=== PATIENT | female | born 1945 | race Caucasian/White ===

== ENCOUNTER 2025-02-21 13:27 | Inpatient (IN) | payer MEDICARE, OTHER ==
[~2025-02-21] VITALS: Ht 172.7 cm; Wt 102.2 kg
[2025-02-21] MEDS ORDERED: methylPREDNISolone SOD SUCC 125 MG/2 ML VL IV ONE (13:45)
--- NOTE | 2025-02-21 14:17 | DVH ---
CHEST RADIOGRAPH Indication: sob Technique: Single frontal view of the chest was obtained Comparison: None FINDINGS: The cardiac silhouette is enlarged. The lungs demonstrate patchy airspace opacities. The pulmonary va sculature is prominent. There is no pleural effusion.. There is no pneumothorax. Aortic atherosclerot ic disease. Thoracic dextrocurvature. Old appearing posterolateral right rib fractures. Cervical baltazar dware IMPRESSION: 1. Cardiomegaly with pulmonary vascular congestion and bilateral patchy airspace opacities. 2. Old appearing right posterior/ lateral rib fractures. Correlate with point tenderness.
[2025-02-21 14:20] LABS: Basophils # (auto) 0 10 ^3/uL (0-0.2); Basophils % (auto) 0.6 % (0.0-2.0); Eosinophils # (auto) 0.1 10 ^3/uL (0-0.8); Eosinophils % (auto) 1.4 % (0.0-7.0); Hematocrit 46.9 % (36.0-46.0); Hemoglobin 15.5 g/dL (12.2-16.2); Lymphocytes # (auto) 1.1 10 ^3/uL (0.4-5.4); Lymphocytes % (auto) 16.1 % (10.0-50.0); Mean Corpuscular Hemoglobin 30.5 pg (28.0-32.0); Mean Corpuscular Volume 92.3 fL (80.0-100.0); Monocytes # (auto) 0.5 10 ^3/uL (0-1.3); Monocytes % (auto) 7.2 % (0.0-12.0); Neutrophils # (auto) 5.1 10 ^3/uL (1.6-8.6); Neutrophils % (auto) 74.7 % (37.0-80.0); Nucleated Red Blood Cells % 0.1 %; Platelet Count (auto) 179 10^3/uL (140-450); Red Blood Cells 5.08 10^6/uL (4.0-5.20); Red Cell Distribution Width 14.4 % (11.8-14.3); White Blood Cell 6.9 10^3/uL (4.4-10.8)
[2025-02-21] MEDS: methylPREDNISolone SOD SUCC 40 MG/ML VL IV ONE (14:22)
--- NOTE | 2025-02-21 14:45 | ECG ---
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
[2025-02-21 14:58] VITALS: PULSE 89; RESP 12; O2SAT 91
[2025-02-21 15:21] LABS: Chloride 106 mmol/L (98-107); Potassium 4.3 mmol/L (3.5-5.1); Sodium 142 mmol/L (136-145)
[2025-02-21 15:22] LABS: Anion Gap 6 (5-15); Carbon Dioxide 30 mmol/L (20-31)
[2025-02-21 15:23] LABS: Calcium 9.5 mg/dL (8.7-10.4)
[2025-02-21 15:28] LABS: BUN/Creatinine Ratio 16.4 (10.0-20.0); Blood Urea Nitrogen 10 mg/dL (9-23); Glucose 104 mg/dL (74-106)
[2025-02-21] MEDS: hydrALAZINE HCL 20 MG/ML VL IV ONE (16:35)
[2025-02-21] MEDS: ONDANSETRON HCL 4 MG/2 ML VIAL IV ONE (16:35)
[2025-02-21] MEDS: MORPHINE SULFATE 4 MG/ML SYR/VIAL IV ONE (16:36)
[2025-02-21 17:30] LABS: Urine Bacteria MANY /hpf (None Seen); Urine Blood 1+ /uL (Negative); Urine Budding Yeast OCCASIONAL /hpf (None Seen); Urine Clarity Ex.Turbid (Clear); Urine Color Light-Orange (Yellow); Urine Mucus FEW (None Seen); Urine Protein, UAD 1+ (Negative); Urine Specific Gravity 1.018 (1.001-1.035); Urine Squamous Epithelial Cell MOD /hpf (<5); Urine Urobilinogen Normal (Negative); Urine WBC 115 /HPF (0-5); Urine WBC Clumps PRESENT /hpf (None Seen); Urine pH 5.5 (5.0-9.0)
[2025-02-21] MEDS: SODIUM CHLORIDE 0.9% 1,000 ML IV ONE (17:34)
[2025-02-21] MEDS: IOHEXOL 350 MG/ML 100ML IJ ONE (18:22)
--- NOTE | 2025-02-21 18:59 | DVH ---
Procedure: CT CT ANGIO CHEST CONTRAST Reason for study/Clinical History: sob Comparison Study: None Exam Date: 02/21/2025 06:22 PM Radiation Dose Information: CT Dose: CTDI volume is 23.69 mGy. Dose-length product is 881.49 mGy*cm Contrast: Type of contrast: The 350 Contrast inject: 100 Contrast wasted:0 TECHNIQUE: After the uneventful administration of intravenous contrast intravenously, CT imaging was performed through the chest. Coronal and sagittal reformations were performed by the technologist. FINDINGS: Lower Neck: Visualized portions of the thyroid gland are unremarkable. Aorta and Vasculature: Normal caliber of thoracic aorta. Positive pulmonary emboli bilaterally in 2nd and 3rd order branches. Lymph Nodes: No enlarged intrathoracic lymph nodes. Mediastinum: Heart size is normal. There is no pericardial effusion. The esophagus is unremarkable. Lungs: No focal consolidation, pleural effusion or significant pneumothorax. No suspicious pulmonary nodule or mass. Musculoskeletal: No acute osseous abnormality. Upper abdomen: Limited portions of the upper abdomen are unremarkable. IMPRESSION: 1. Positive filling defects in 2nd and 3rd order branches of the pulmonary arteries on the right and left consistent with pulmonary emboli. 2. All CT scans at this medical facility are performed using dose modulation techniques as appropriate to a performed exam including the following: Automated exposure control was utilized; adjustment of t he MA and/or KV according to patient size; and use of iterative reconstruction technique. CRITICAL FINDINGS Critical Result: + PULMONARY EMBOLI Findings discussed with , at 02/21/2025 06:50 PM, and acknowledged receipt and understanding of the f indings. ..
--- NOTE | 2025-02-21 19:15 | ECG ---
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
--- NOTE | 2025-02-21 19:44 | ED.PDOC ---
History of Present Illness HPI Comments This is a 79-year-old female who comes in with chief complaint of chest pain and syncope approximately 1 hour prior to arrival. According to the patient, [facility] came and saw her and the patient has been complaining of some abdominal pain and constipation with some shortness for breath. The patient states that she started experiencing some chest pain with the shortness for breath and diaphoresis so an EKG was done and it was right-sided and shows a possible STEMI. The patient has a history of being paralyzed but was able to give us her medical history. She states that the pain is somewhat pressure-like and nonradiating. Currently she is on oxygen at 2 L for COPD. Chief Complaint: Syncope Time Seen by MD: 13:30 Primary Care Provider: UNKNOWN Reviewed Notes: Nurses Notes, Slot Machine Key Person Notes, Medications, Allergies (No allergies to medications) Allergies: Coded Allergies: NO KNOWN ALLERGIES (Unverified , 02/21/25) Information Source: Patient, Emergency Med Personnel Mode of Arrival: EMS Severity: Moderate Timing: Hours Duration: Since onset Prehospital treatment: 12 Lead EKG, Acid Operator, IVF Associated signs and symptoms Chest pain with syncope as well as abdominal pain and shortness for breath. The patient is also having some diaphoresis and constipation Past Medical History PAST MEDICAL HISTORY: Cancer (Colon cancer), COPD, High Lipids, HTN Past Medical History (Other): History of paralysis Surgical History (Other): Back surgery, neck surgery, colon surgery secondary to colon cancer CAPACITOR REPAIRER History: No Pertinent CAPACITOR REPAIRER History Family History Family History: Unknown Social History Smoker: Non-Smoker Alcohol: Occasionally Drugs: Marijuana Lives In: Home Constitutional: reports: diaphoresis; denies: chills, fatigue, fever, malaise, sweats, weakness, others EENTM: denies: blurred vision, double vision, ear bleeding, ear discharge, ear drainage, ear pain, ear ringing, eye pain, eye redness, hearing loss, mouth pain, mouth swelling, nasal discharge, nose bleeding, nose congestion, nose pain, photophobia, tearing, throat pain, throat swelling, voice changes, others Respiratory: denies: cough, hemoptysis, orthopnea, SOB at rest, shortness of breath, SOB with excertion, stridor, wheezing, others Cardiovascular: reports: chest pain, syncope; denies: dizzy spells, diaphoresis, Dyspnea on exertion, edema, irregular heart beat, left arm pain, lightheadedness, palpitations, PND, others Gastrointestinal: reports: abdominal pain, constipated; denies: abdomen distended, blood streaked bowels, diarrhea, dysphagia, difficulty swallowing, hematemesis, melena, nausea, poor appetite, poor fluid intake, rectal bleeding, rectal pain, vomiting, others Genitourinary: denies: abnormal vagina bleeding, burning, dyspareunia, dysuria, flank pain, frequency, hematuria, incontinence, pain, , vagina discharge, urgency, others Neurological: denies: dizziness, fainting, headache, left sided numbness, left sided weakness, numbness, paresthesia, pre-existing deficit, right sided numbness, right sided weakness, seizure, speech problems, tingling, tremors, weakness, others Musculoskeletal: denies: back pain, gout, joint pain, joint swelling, muscle pain, muscle stiffness, neck pain, others Integumetry: denies: bruises, change in color, change in hair/nails, dryness, laceration, lesions, lumps, rash, wounds, others Allergic/Immunocompromised: denies: Difficulty Healing, Frequent Infections, Hives, Itching, others Hematologic/Lymphatic: denies: anemia, blood clots, easy bleeding, easy bruising, swollen glands, others Endocrine: denies: excessive hunger, excessive sweating, excessive thirst, excessive urination, flushing, intolerance to cold, intolerance to heat, unexplained weight gain, unexplained weight loss, others Psychiatric: denies: anxiety, bipolar disorder, depression, hopeless, panic disorder, schizophrenia, sleepless, suicidal, others Physical Exam General Appearance: Moderate Distress, Obese HEENT: Pale [place]junt[place]ae (L), Pale Conjuntivae (R), Pharynx Normal, TMs Normal Neck: Full Range of Motion, Non-Tender, Normal, Normal Inspection Respiratory: Chest Non-Tender, Lungs Clear, No Accessory Muscle Use, No Respiratory Distress, Normal Breath Sounds Cardiovascular: No Edema, No JVD, No Murmur, No Gallop, Normal Peripheral Pul ses, Regular Rate/Rhythm Breast Exam: Deferred Gastrointestinal: No Organomegaly, Non Tender, No Pulsatile Mass, Normal Bowel Sounds, Soft Genitalia: Deferred Pelvic: Deferred Rectal: Deferred Extremities: Normal capillary refill, Non-tender, Pedal edema Musculoskeletal : Apperance: Normal Neurologic: Alert, Motor Weakness, Normal Affect, Normal Mood, Other (The patient is a paraplegic) Cerebellar Function: Unable to Test Reflexes: Normal Skin: Dry, Pallor, Warm Lymphatic: No Adenopathy Was a procedure done? Was a procedure done?: No EKG EKG : Pulse Rate (adult): 116 [place]: Normal Cardiac Rhythm: ST ST: Nonsp Differential Dx Considerations may include: PE, ACS, CA, generalized weakness X-Ray, Labs, Meds, VS Vital Signs Date Time Temp Pulse Resp B/P (MAP) Pulse Ox O2 Delivery O2 Flow Rate FiO2 02/21/25 18:22 83 17 94/67 02/21/25 18:00 85 14 105/66 (79) 92 02/21/25 16:36 80 19 197/128 02/21/25 16:35 197/128 02/21/25 16:01 88 19 214/143 (166) 90 02/21/25 16:00 89 02/21/25 14:58 89 12 91 Nasal Cannula* 6 44 02/21/25 14:28 86 02/21/25 13:55 94 Nasal Cannula* 6 44 02/21/25 13:53 98.1 83 15 104/70 (81) 94 98.1 02/21/25 13:27 116 02/21/25 13:27 98.4 86 16 82/67 (72) 9 98.4 Lab Test 02/21/25 16:59 02/21/25 15:02 02/21/25 14:50 02/21/25 14:00 Range/Units Troponin I High Sensitivity 1045 *H 870 *H 589 *H </=34 ng/L Urine Color Light-orange Yellow Urine Clarity Ex.turbid Clear Urine pH 5.5 5.0-9.0 Urine Specific [place] 1.018 1.001-1.035 Urine Protein 1+ H Negative Urine Ketones Negative Negative Urine Blood 1+ H Negative /uL Urine Nitrite 2+ H Negative Urine Bilirubin Negative Negative Urine Urobilinogen Normal Negative mg/dL Urine Leukocyte Esterase 3+ Negative /uL Urine RBC 20 0 - 4 /hpf Urine WBC Clumps Present None Seen /hpf Urine Microscopic WBC 115 H 0-5 /HPF Urine Squamous Epithelial Cells Mod <5 /hpf Urine Bacteria Many H None Seen /hpf Urine Mucus Few None Seen Urine Yeast (Budding) Occasional None Seen /hpf Urine Glucose Normal Normal mg/dL White Blood Count 6.9 4.4-10.8 10^3/uL Red Blood Count 5.08 4.0-5.20 10^6/uL Hemoglobin 15.5 12.2-16.2 g/dL Hematocrit 46.9 H 36.0-46.0 % Mean Corpuscular Volume 92.3 80.0-100.0 fL Mean Corpuscular Hemoglobin 30.5 28.0-32.0 pg Mean Corpuscular Hemoglobin Concent 33.0 32.0-36.0 g/dL Red Cell Distribution Width 14.4 H 11.8-14.3 % Platelet Count 179 140-450 10^3/uL Mean Platelet Volume 8.5 6.9-10.8 fL Neutrophils (%) (Auto) 74.7 37.0-80.0 % Lymphocytes (%) (Auto) 16.1 10.0-50.0 % Monocytes (%) (Auto) 7.2 0.0-12.0 % Eosinophils (%) (Auto) 1.4 0.0-7.0 % Basophils (%) (Auto) 0.6 0.0-2.0 % Neutrophils # (Auto) 5.1 1.6-8.6 10 ^3/uL Lymphocytes # (Auto) 1.1 0.4-5.4 10 ^3/uL Monocytes # (Auto) 0.5 0-1.3 10 ^3/uL Eosinophils # (Auto) 0.1 0-0.8 10 ^3/uL Basophils # (Auto) 0 0-0.2 10 ^3/uL Nucleated Red Blood Cells 0.1 % D-Dimer, Quantitative 15.25 H 0.0-0.49 mg/L FEU Sodium Level 142 136-145 mmol/L Potassium Level 4.3 3.5-5.1 mmol/L Chloride Level 106 98-107 mmol/L Carbon Dioxide Level 30 20-31 mmol/L Anion Gap 6 5-15 Blood Urea Nitrogen 10 9-23 mg/dL Creatinine 0.61 0.550-1.02 mg/dL Glomerular Filtration Rate Calc 92 >90 mL/min BUN/Creatinine Ratio 16.4 10.0-20.0 Serum Glucose 104 74-106 mg/dL Calcium Level 9.5 8.7-10.4 mg/dL B-Type Natriuretic Peptide 59.74 0-100 pg/mL Current Medications Medications (Trade) Dose Ordered Sig/Shayna Route Start Time Stop Time Status Last Admin Methylprednisolone Sodium Succinate (Solu Medrol) 120 mg ONCE ONCE IV 02/21/25 14:30 02/21/25 14:31 DC 02/21/25 14:22 Hydralazine HCl (Apresoline Injection) 15 mg ONCE ONCE IV 02/21/25 16:30 02/21/25 16:31 DC 02/21/25 16:35 Morphine Sulfate 4 mg ONCE ONCE IV 02/21/25 16:30 02/21/25 16:31 DC 02/21/25 16:36 Ondansetron HCl (Zofran) 4 mg ONCE ONCE IV 02/21/25 16:30 02/21/25 16:31 DC 02/21/25 16:35 Sodium Chloride 1,000 ml @ 1,000 mls/hr Q1H ONCE IV 02/21/25 17:30 02/21/25 18:29 DC 02/21/25 17:34 IV Hep-Lock was established The patient was given Solu-Medrol 120 mg IV push The patient was also given hydralazine 15 mg for the elevated blood pressure The patient was given morphine for the pain and Zofran for the nausea The patient became somewhat hypotensive so the patient was given normal saline as a bolus The D-dimer is elevated at 15.25 The patient's troponin level has trended upwards from 589 two 870 and then 1045 The patient's CBC and chemistry panel are within normal limits A chest x-ray shows: IMPRESSION: 1. Cardiomegaly with pulmonary vascular congestion and bilateral patchy airspace opacities. 2. Old appearing right posterior/ lateral rib fractures. Correlate with point tenderness. We then did a CAT scan of the chest to rule out PE secondary to the elevated D- dimer and the trending troponin levels The CAT scan shows: Critical pulmonary embolus We contacted who is here to take the patient to confectionery laboratory manager for a thrombectomy We have discussed the findings with the patient and she is in agreement with the management. The patient was given Lovenox initially prior to the thrombectomy The patient will be admitted to the ICU following this. Images Reviewed?: Images reviewed and evaluated by me Time of 1ST Reevaluation: 20:04 Reevaluation 1ST: Unchanged Time of 2ND Reevaluation: 20:09 Reevaluation 2ND: Unchanged Patient Education/Counseling: Diagnosis, Treatment, Prognosis Family Education/Counseling: No Family Present Departure 1 Departure Time of Disposition: 20:09 Impression: Primary Impression: Pulmonary embolus Qualified Codes: I26.09 - Other pulmonary embolism with acute cor pulmonale Additional Impression: Acute chest pain Disposition: ADMITTED INPATIENT Condition: Guarded Critical Care Note Critical Care Time?: Yes (1 hr-critical care time only) Stability Stability form required: Yes Unstable for transfer: ICU, CCU, PCU, LUISA (Intensive VS monitoring), Low BP (low high or fluctuating BP), May require CPR (possible rapid decline), ED Physician Assesment (Clinical assesment) Heart Score Heart Score: Heart Score Response (Comments) Value History Highly Suspicious [address]-Deviation 2 Age >65 2 Risk Factors >3 or Hx ASHD 2 Troponin >3 x's Normal limit 2 Total 10 AGUILAR STEPHENS MD February 21, 2025 19:44
[2025-02-21 19:45] VITALS: PULSE 84; RESP 12; O2SAT 91
[2025-02-21] MEDS: ENOXAPARIN SOD 100 MG/1 ML SYRINGE SC ONE (20:06)
[2025-02-21] MEDS: fentaNYL CITRATE 100 MCG/2 ML VL ONE (20:29)
[2025-02-21] MEDS: MIDAZOLAM HCL 2MG/2ML 2ml VIAL (1mg/ml) ONE (20:29)
[2025-02-21] MEDS ORDERED: ONDANSETRON HCL 4 MG/2 ML VIAL IV PRN (20:30)
[2025-02-21] MEDS ORDERED: MORPHINE SULFATE INJ 2 MG/ml SYRG IV PRN (20:30)
[2025-02-21] MEDS: LIDOCAINE 2%HCL (LOCAL ANESTH.) INJ 20ML MDV ONE (20:30)
[2025-02-21] MEDS ORDERED: NITROGLYCERIN 0.4 MG SL TAB SL PRN (20:30)
--- NOTE | 2025-02-21 20:42 | DVHCONRES ---
Date Seen: February 21, 2025 Resident Creating Document: ESTELA ALEJANDRE Jr., MD Referring Physician er Reason for Consultation Bilateral pulmonary embolism History of Present Illness This is a 79-year-old female who comes in with chief complaint of chest pain and syncope approximately 1 hour prior to arrival. According to the patient, [facility] came and saw her and the patient has been complaining of some abdominal pain and constipation with some shortness for breath. The patient states that she started experiencing some chest pain with the shortness for breath and diaphoresis so an EKG was done and it was right-sided and shows a possible STEMI. The patient has a history of being paralyzed but was able to give us her medical history. She states that the pain is somewhat pressure-like and nonradiating. Currently she is on oxygen at 2 L for COPD. Past Medical History Hypertension, colon cancer, hyperlipidemia, COPD Past Surgical History Colon resection Social History Nonsmoker nondrinker Allergies: Coded Allergies: NO KNOWN ALLERGIES (Unverified , 02/21/25) Current Medications Current Medications Medications (Trade) Dose Ordered Sig/Shayna Route PRN Reason Start Time Stop Time Status Last Admin Sodium Chloride (Saline Lock Ns) 10 ml Q8HR IV 02/21/25 22:00 Ondansetron HCl (Zofran) 4 mg Q4HP PRN IV NAUSEA / VOMITING 02/21/25 20:30 Docusate Sodium (Colace Capsule) 100 mg BIDPRN PRN PO FOR CONSTIPATION 02/21/25 20:30 Acetaminophen (Tylenol Tablet) 650 mg Q6HP PRN PO PAIN SCALE 1-3 OR TEMP>100.4 02/21/25 20:30 Morphine Sulfate 2 mg Q4HPRN PRN IV SEVERE PAIN (7-10 PAIN SCALE) 02/21/25 20:30 Nitroglycerin (Ntrostat Sublingual) 0.4 mg Q5MINP PRN SL FOR CHEST PAIN 02/21/25 20:30 Morphine Sulfate 2 mg Q30M PRN IV FOR CHEST PAIN 02/21/25 20:30 Review of Systems Systems were reviewed please see HPI Vital Signs Vital Signs Date Time Temp Pulse Resp B/P (MAP) Pulse Ox O2 Delivery O2 Flow Rate FiO2 02/21/25 20:11 116 02/21/25 19:45 97.8 12 103/60 (74) 91 97.8 02/21/25 14:58 Nasal Cannula* 6 44 Physical Exam Head eyes ears nose and throat exam are nonicteric conjunctiva was pink Echo supple no JVD no lymphadenopathy no carotid bruits lungs decreased breath sounds bases she is on currently on oxygen with labored breathing. Saturation 85-86%. Or was mildly tachycardic abdomen is soft nontender no pulsatile abdominal masses or bruits lower extremities a palpable femoral pulses nonpalpable pulses trace edema. Labs/Diagnostic Data Labs Test 02/21/25 16:59 02/21/25 15:02 02/21/25 14:00 Range/Units Troponin I High Sensitivity 1045 *H </=34 ng/L Urine Color Light-orange Yellow Urine Clarity Ex.turbid Clear Urine pH 5.5 5.0-9.0 Urine Specific [place] 1.018 1.001-1.035 Urine Protein 1+ H Negative Urine Ketones Negative Negative Urine Blood 1+ H Negative /uL Urine Nitrite 2+ H Negative Urine Bilirubin Negative Negative Urine Urobilinogen Normal Negative mg/dL Urine Leukocyte Esterase 3+ Negative /uL Urine RBC 20 0 - 4 /hpf Urine WBC Clumps Present None Seen /hpf Urine Microscopic WBC 115 H 0-5 /HPF Urine Squamous Epithelial Cells Mod <5 /hpf Urine Bacteria Many H None Seen /hpf Urine Mucus Few None Seen Urine Yeast (Budding) Occasional None Seen /hpf Urine Glucose Normal Normal mg/dL White Blood Count 6.9 4.4-10.8 10^3/uL Red Blood Count 5.08 4.0-5.20 10^6/uL Hemoglobin 15.5 12.2-16.2 g/dL Hematocrit 46.9 H 36.0-46.0 % Mean Corpuscular Volume 92.3 80.0-100.0 fL Mean Corpuscular Hemoglobin 30.5 28.0-32.0 pg Mean Corpuscular Hemoglobin Concent 33.0 32.0-36.0 g/dL Red Cell Distribution Width 14.4 H 11.8-14.3 % Platelet Count 179 140-450 10^3/uL Mean Platelet Volume 8.5 6.9-10.8 fL Neutrophils (%) (Auto) 74.7 37.0-80.0 % Lymphocytes (%) (Auto) 16.1 10.0-50.0 % Monocytes (%) (Auto) 7.2 0.0-12.0 % Eosinophils (%) (Auto) 1.4 0.0-7.0 % Basophils (%) (Auto) 0.6 0.0-2.0 % Neutrophils # (Auto) 5.1 1.6-8.6 10 ^3/uL Lymphocytes # (Auto) 1.1 0.4-5.4 10 ^3/uL Monocytes # (Auto) 0.5 0-1.3 10 ^3/uL Eosinophils # (Auto) 0.1 0-0.8 10 ^3/uL Basophils # (Auto) 0 0-0.2 10 ^3/uL Nucleated Red Blood Cells 0.1 % D-Dimer, Quantitative 15.25 H 0.0-0.49 mg/L FEU Sodium Level 142 136-145 mmol/L Potassium Level 4.3 3.5-5.1 mmol/L Chloride Level 106 98-107 mmol/L Carbon Dioxide Level 30 20-31 mmol/L Anion Gap 6 5-15 Blood Urea Nitrogen 10 9-23 mg/dL Creatinine 0.61 0.550-1.02 mg/dL Glomerular Filtration Rate Calc 92 >90 mL/min BUN/Creatinine Ratio 16.4 10.0-20.0 Serum Glucose 104 74-106 mg/dL Calcium Level 9.5 8.7-10.4 mg/dL B-Type Natriuretic Peptide 59.74 0-100 pg/mL Procedure: CT CT ANGIO CHEST CONTRAST Reason for study/Clinical History: sob Comparison Study: None Exam Date: 02/21/2025 06:22 PM Radiation Dose Information: CT Dose: CTDI volume is 23.69 mGy. Dose-length product is 881.49 mGy*cm Contrast: Type of contrast: The 350 Contrast inject: 100 Contrast wasted:0 TECHNIQUE: After the uneventful administration of intravenous contrast intravenously, CT imaging was performed through the chest. Coronal and sagittal reformations were performed by the technologist. FINDINGS: Lower Neck: Visualized portions of the thyroid gland are unremarkable. Aorta and Vasculature: Normal caliber of thoracic aorta. Positive pulmonary emboli bilaterally in 2nd and 3rd order branches. Lymph Nodes: No enlarged intrathoracic lymph nodes. Mediastinum: Heart size is normal. There is no pericardial effusion. The esophagus is unremarkable. Lungs: No focal consolidation, pleural effusion or significant pneumothorax. No suspicious pulmonary nodule or mass. Musculoskeletal: No acute osseous abnormality. Upper abdomen: Limited portions of the upper abdomen are unremarkable. IMPRESSION: 1. Positive filling defects in 2nd and 3rd order branches of the pulmonary arteries on the right and left consistent with pulmonary emboli. 2. All CT scans at this medical facility are performed using dose modulation techniques as appropriate to a performed exam including the following: Automated exposure control was utilized; adjustment of the MA and/or KV according to patient size; and use of iterative reconstruction technique. CRITICAL FINDINGS Critical Result: + PULMONARY EMBOLI Assessment Bilateral pulmonary embolisms with hemodynamic instability. We will plan on performing pulmonary artery embolectomy thrombectomy with possible thrombolysis. Discussed with the patient risks benefits of the procedure including heart attack, need for mechanical ventilation, , patient understands agrees Call the director of cath lab team in and well as the inari representive. We will perform tonight Plan/Recommendation Bilateral pulmonary embolisms with hemodynamic instability. We will plan on performing pulmonary artery embolectomy thrombectomy with possible thrombolysis. Discussed with the patient risks benefits of the procedure including heart attack, need for mechanical ventilation, , patient understands agrees Call the director of cath lab team in and well as the inari representive. We will perform tonight Plan discussed with: Patient ESTELA ALEJANDRE Jr., MD February 21, 2025 20:42
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
[2025-02-21] MEDS: IODIXANOL 320MG/ML 100ML BTL IV ONE (21:09)
[2025-02-21] MEDS: HEPARIN SODIUM (PORCINE) 5000 UNITS/ML 1ML VIAL ONE (21:33)
[2025-02-21 21:56] LABS: INR 1.08 (0.9-1.15); Partial Thromboplastin Time 31.3 SEC (24.5-34.5); Prothrombin Time 11.4 sec (9.3-11.8)
[2025-02-22] VITALS (96 sets, daily range): BP systolic 64–184; BP diastolic 35–142; PULSE 51–86; RESP 10–24; TEMP 97.4–97.9; O2SAT 89–98
--- NOTE | 2025-02-22 00:04 | DVHOP2 ---
Operative Report - 2 Report Details Date: 02/21/25 Preop Diagnosis: Bilateral pulmonary artery embolisms Postop Diagnosis: Same Surgeon: Braydon Salinas MD Anesthesiologist: Conscious sedation Anesthesia: Local Consent: The patient was informed of the risks and benefits of the procedure. These include but are not limited to complications of anesthesia, postoperative infection, incomplete relief of symptoms, recurrence of symptoms, damage to blo od vessels, nerves and tendons, deep venous thrombosis, pulmonary embolism and possible need for repeat surgery in the future. Indications for Surgery: Bilateral pulmonary embolisms Name of Procedure Performed Bilateral pulmonary artery thrombectomy Procedure Details Procedure Details: The patient was identified in the preop hold area is being Mrs. Montalvo. At this point in time she was consented and preopped by myself she was taken back to the laborer marine terminal placed in the laborer marine terminal table in supine position after adequate induction of the anesthesia and a time-out the right and left groin were prepped and draped in normal surgical fashion 1% lidocaine was injected above the right femoral vein a 4 [place]amanian micropuncture needle was used to cannulate the femoral vein this was exchanged out for an 8 [place]ian sheath. A Glidewire was then passed up to the level of the heart. At this point in time the [place] sheath was then passed up to the level of the diaphragm and then using a wire and catheter the wire was then but was able to be manipulated into the right ventricle have up into the pulmonary artery and then into the left pulmonary artery. The sheath over a dilator was then manipulated into the left pulmonary artery into the 2nd 3rd branches at this point in time the thrombectomy was performed multiple thrombectomies were performed as the catheter was pulled back to the main trunk. A completion venogram demonstrated minimal residual thrombus a significant clot burden had been removed. Attention was then placed to the right pulmonary artery the catheter and sheath were pulled back and then using a wire and catheter the wire was then passed down into the lower lobe of the lung pulmonary artery segment and then using the NR a device the aspiration of the clot was performed several times. Again significant clot burden was removed. At this point in time a completion venogram showed improved flow and no significant residual clot formation. At this point in time the catheters and sheaths were pulled back pursestring suture was placed at the right femoral puncture site and manual pressure was held for approximately 5 minutes. Patient tolerated the procedure well and was taken to recovery room in stable condition. Condition Guarded Disposition pacu BRAYDON SALINAS Jr., MD February 22, 2025 00:03
[2025-02-22] MEDS: cefTRIAXone 1GM/50ML D5W 50 ML IV ONE (01:47)
[2025-02-22] MEDS: PANTOPRAZOLE 40 MG/10 ML VIAL INJ IV ONE (01:47)
[2025-02-22] MEDS: SODIUM CHLOR 0.9% PF (SALINE LOCK) 10ML VIAL/SYR IV SCH (01:50)
[2025-02-22] MEDS: MORPHINE SULFATE INJ 2 MG/ml SYRG IV PRN (02:23)
[2025-02-22] MEDS: LABETALOL HCL 20 MG/4 ML VL IV ONE (03:15)
[2025-02-22] MEDS ORDERED: LABETALOL HCL 20 MG/4 ML VL IV PRN (03:30)
[2025-02-22] MEDS ORDERED: ALBUTEROL SULF 2.5 MG/0.5ML(0.5%) NEB SOLN NEB PRN (03:45)
[2025-02-22] MEDS ORDERED: IPRATROPIUM BROM 0.5 MG/2.5ML INH SOL NEB PRN (03:45)
[2025-02-22] MEDS: HYDROcodone-ACET 5/325MG TAB PO PRN (04:27)
[2025-02-22 04:49] LABS: Basophils # (auto) 0 10 ^3/uL (0-0.2); Basophils % (auto) 0.2 % (0.0-2.0); Eosinophils # (auto) 0 10 ^3/uL (0-0.8); Hematocrit 47.7 % (36.0-46.0); Hemoglobin 15.7 g/dL (12.2-16.2); Lymphocytes # (auto) 0.6 10 ^3/uL (0.4-5.4); Lymphocytes % (auto) 11.4 % (10.0-50.0); Mean Corpuscular Hemoglobin 30.4 pg (28.0-32.0); Mean Corpuscular Hgb Conc. 32.9 g/dL (32.0-36.0); Mean Corpuscular Volume 92.3 fL (80.0-100.0); Monocytes # (auto) 0.1 10 ^3/uL (0-1.3); Monocytes % (auto) 2.7 % (0.0-12.0); Neutrophils # (auto) 4.5 10 ^3/uL (1.6-8.6); Neutrophils % (auto) 85.7 % (37.0-80.0); Nucleated Red Blood Cells % 0.3 %; Platelet Count (auto) 171 10^3/uL (140-450); Red Blood Cells 5.16 10^6/uL (4.0-5.20); Red Cell Distribution Width 14.4 % (11.8-14.3); White Blood Cell 5.2 10^3/uL (4.4-10.8)
[2025-02-22 04:52] LABS: Alkaline Phosphatase 91 U/L (46-116); Anion Gap 10 (5-15); BUN/Creatinine Ratio 21.8 (10.0-20.0); Blood Urea Nitrogen 12 mg/dL (9-23); Calcium 8.8 mg/dL (8.7-10.4); Carbon Dioxide 26 mmol/L (20-31); Chloride 105 mmol/L (98-107); INR 1.09 (0.9-1.15); Partial Thromboplastin Time 37.4 SEC (24.5-34.5); Potassium 4.3 mmol/L (3.5-5.1); Prothrombin Time 11.5 sec (9.3-11.8); Sodium 141 mmol/L (136-145); Total Protein 6.4 g/dL (5.7-8.2)
[2025-02-22 04:53] LABS: Albumin 3.6 g/dL (3.2-4.8); Aspartate Aminotransferase 19 U/L (13-40); Bilirubin, Total 0.7 mg/dL (0.2-1.0)
[2025-02-22 05:10] LABS: Alanine Aminotransferase < 9 U/L (7-40); Glucose 133 mg/dL (74-106)
[2025-02-22] MEDS ORDERED: HEPARIN DRIP/D5W 100UNITS/ML 250 ML IV SCH ×2 (08:00)
[2025-02-22] MEDS: hydroCHLOROthiazide 25 MG TAB PO SCH (09:36)
[2025-02-22] MEDS: PANTOPRAZOLE 40 MG/10 ML VIAL INJ IV SCH (09:38)
--- NOTE | 2025-02-22 09:45 | DVH ---
EXAM: US BILAT LOWER DVT Clinical History: Bilateral leg swelling Comparison: None Technique: Duplex Doppler evaluation of the deep venous systems of both lower extremities from the co mmon femoral veins to the popliteal veins including color Doppler and spectral/pulsed waveform analys is was performed. Findings: RIGHT SIDE: The common femoral vein demonstrates appropriate compressibility and waveform variability. There is compressibility/patency of the great saphenous vein at the proximal thigh. The femoral vein demonstrates appropriate compressibility and waveform variability. The deep femoral vein demonstrates appropriate compressibility and waveform variability. The popliteal vein demonstrates appropriate compressibility and waveform variability. There is color flow at the tibioperoneal trunk and in the posterior tibial vein. LEFT SIDE: The common femoral vein demonstrates appropriate compressibility and waveform variability. There is compressibility/patency of the great saphenous vein at the proximal thigh. The femoral vein demonstrates appropriate compressibility and waveform variability. The deep femoral vein demonstrates appropriate compressibility and waveform variability. The popliteal vein demonstrates appropriate compressibility and waveform variability. There is color flow at the tibioperoneal trunk and in the posterior tibial vein. Impression: 1. No right or left femoropopliteal venous thrombosis.
[2025-02-22] MEDS ORDERED: ENOXAPARIN SOD 100 MG/1 ML SYRINGE SC SCH (10:00)
--- NOTE | 2025-02-22 10:09 | DVH ---
ULTRASOUND AORTIC CLINICAL INDICATION: aBDOMINAL AORTIC ANEURYSM, smoking history TECHNIQUE: Multiple sonographic images of the abdominal aorta were obtained. FINDINGS: The aorta measures 6.5 cm, 6.2 and 5 cm in the AP diameter, at the superior, mid and inf erior portions, respectively. The right iliac artery measures 6mm in diameter. The left iliac measur ed 8mm in diameter. There is no evidence for atherosclerotic disease. There is no periaortic fluid. IMPRESSION: Abdominal aortic aneurysm measuring up to 6.5 cm. Complex mass in the pancreatic head incidentally noted measuring 7 x 6 by 4 cm.
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
--- NOTE | 2025-02-22 10:39 | CONS ---
Pharmacy Clinical Information: INITIATE HEPARIN DRIP AT RATE 1700 UNITS/HR = 17 ML/HR PE/DVT PROTOCOL, BASED ON PT WEIGHT = 93.6 KG APTT DRAW SCHEDULED FOR 1700 PER RX PROTOCOL LOURDES GUERRA PHARMACIST February 22, 2025 10:39
[2025-02-22] MEDS ORDERED: HEPARIN SODIUM (PORCINE) 5000 UNITS/ML 1ML VIAL IV ONE (10:45)
[2025-02-22] MEDS: SODIUM CHLORIDE 0.9% 250 ML IV ONE (11:08)
[2025-02-22 11:39] LABS: Basophils # (auto) 0 10 ^3/uL (0-0.2); Basophils % (auto) 0.2 % (0.0-2.0); Eosinophils # (auto) 0 10 ^3/uL (0-0.8); Hematocrit 41.5 % (36.0-46.0); Hemoglobin 13.7 g/dL (12.2-16.2); Lymphocytes # (auto) 0.8 10 ^3/uL (0.4-5.4); Mean Corpuscular Hemoglobin 30.5 pg (28.0-32.0); Mean Corpuscular Hgb Conc. 33.1 g/dL (32.0-36.0); Mean Corpuscular Volume 92.2 fL (80.0-100.0); Monocytes # (auto) 0.5 10 ^3/uL (0-1.3); Monocytes % (auto) 9.4 % (0.0-12.0); Neutrophils # (auto) 4.5 10 ^3/uL (1.6-8.6); Neutrophils % (auto) 77.4 % (37.0-80.0); Nucleated Red Blood Cells % 0.1 %; Platelet Count (auto) 158 10^3/uL (140-450); Red Cell Distribution Width 14.3 % (11.8-14.3); White Blood Cell 5.8 10^3/uL (4.4-10.8)
[2025-02-22 11:54] LABS: INR 1.11 (0.9-1.15); Partial Thromboplastin Time 29.7 SEC (24.5-34.5); Prothrombin Time 11.6 sec (9.3-11.8)
[2025-02-22] MEDS: HEPARIN DRIP/D5W 100UNITS/ML 250 ML IV SCH ×2 (12:23→21:50)
[2025-02-22] MEDS: FUROSEMIDE 20 MG/2 ML VIAL IV ONE (13:30)
[2025-02-22] MEDS: MIDODRINE HCL 10 MG TAB PO SCH (15:49)
[2025-02-22] MEDS: ACETAMINOPHEN 325 MG TAB PO PRN (15:49)
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
[2025-02-22 18:02] LABS: INR 1.14 (0.9-1.15); Prothrombin Time 11.9 sec (9.3-11.8)
[2025-02-22 18:15] LABS: Partial Thromboplastin Time 104.5 SEC (24.5-34.5)
[2025-02-22] MEDS: FLUCONAZOLE 100 MG TAB PO ONE (18:21)
--- NOTE | 2025-02-22 18:28 | CONS ---
Pharmacy Clinical Information: CONFIRMING HEPARIN DRIP ON HOLD FOR 1 HOUR DUE TO APTT = 104.5. WILL RE-START AT RATE 1400 UNITS/HR = 14 ML/HR NEXT APTT DRAW SCHEDULED FOR 02/23 @0130 PER RX PROTOCOL. LOURDES GUERRA PHARMACIST February 22, 2025 18:28
--- NOTE | 2025-02-22 18:28 | DVH ---
CT BRAIN WITHOUT CONTRAST HISTORY: syncope TECHNIQUE: Axial scans were obtained from the skull base through the vertex without contrast. [place] l and coronal reformats were generated. One or more of the following radiation dose reduction [employer] ues were used for this examination: automated exposure control, adjustment of the mA and/or kV accord ing to patient size, use of iterative reconstruction technique. COMPARISON: None FINDINGS: The ventricular system and cortical sulci are normal in size for patient age. No abnormal extra-axial fluid collections or findings of intracranial hemorrhage. No intracranial mass or findings of acute ischemic infarction are demonstrated on these noncontrast s cans. Visualized paranasal sinuses are clear. No evidence of skull fracture. Other: Negative. IMPRESSION: 1. No acute intracranial findings. Negative CT scan head.
[2025-02-22] MEDS: ASPirin 81 mg TAB PO ONE (19:16)
[2025-02-22] MEDS: cefTRIAXone 1GM/50ML D5W 50 ML IV SCH (21:43)
[2025-02-22] MEDS: ATORVASTATIN 20 MG TAB PO SCH (21:45)
[2025-02-22] MEDS ORDERED: ATORVASTATIN 20 MG TAB PO SCH (22:00)
[2025-02-23] VITALS (74 sets, daily range): BP systolic 81–178; BP diastolic 48–111; PULSE 50–79; RESP 9–24; TEMP 97.8–98.5; O2SAT 88–98
[2025-02-23 02:17] LABS: INR 1.12 (0.9-1.15); Prothrombin Time 11.7 sec (9.3-11.8)
[2025-02-23 02:21] LABS: Partial Thromboplastin Time 107.3 SEC (24.5-34.5)
[2025-02-23 04:36] LABS: Chloride 105 mmol/L (98-107); Potassium 4.5 mmol/L (3.5-5.1); Sodium 140 mmol/L (136-145)
[2025-02-23] MEDS: HEPARIN DRIP/D5W 100UNITS/ML 250 ML IV SCH ×2 (04:36→11:07)
[2025-02-23 04:37] LABS: Anion Gap 7 (5-15); Carbon Dioxide 28 mmol/L (20-31)
[2025-02-23 04:41] LABS: Basophils # (auto) 0 10 ^3/uL (0-0.2); Basophils % (auto) 0.6 % (0.0-2.0); Eosinophils # (auto) 0.1 10 ^3/uL (0-0.8); Eosinophils % (auto) 1.3 % (0.0-7.0); Hematocrit 43.9 % (36.0-46.0); Hemoglobin 14.4 g/dL (12.2-16.2); Lymphocytes # (auto) 1.9 10 ^3/uL (0.4-5.4); Lymphocytes % (auto) 22.4 % (10.0-50.0); Mean Corpuscular Hemoglobin 29.9 pg (28.0-32.0); Mean Corpuscular Hgb Conc. 32.8 g/dL (32.0-36.0); Mean Corpuscular Volume 91.2 fL (80.0-100.0); Monocytes # (auto) 0.9 10 ^3/uL (0-1.3); Monocytes % (auto) 10.5 % (0.0-12.0); Neutrophils # (auto) 5.5 10 ^3/uL (1.6-8.6); Neutrophils % (auto) 65.2 % (37.0-80.0); Nucleated Red Blood Cells % 0.3 %; Platelet Count (auto) 170 10^3/uL (140-450); Red Blood Cells 4.82 10^6/uL (4.0-5.20); Red Cell Distribution Width 14.8 % (11.8-14.3); White Blood Cell 8.4 10^3/uL (4.4-10.8)
[2025-02-23 04:42] LABS: BUN/Creatinine Ratio 29.5 (10.0-20.0); Blood Urea Nitrogen 18 mg/dL (9-23); Glucose 96 mg/dL (74-106)
[2025-02-23 04:44] LABS: Calcium 8.6 mg/dL (8.7-10.4)
[2025-02-23] MEDS: DOCUSATE SOD 100 MG CAP PO PRN (05:31)
[2025-02-23 08:07] LABS: AFP Serum Tumor Marker 2.3 ng/mL (0.0-9.2); Cancer Antigen (CA) 125 8.2 U/mL (0.0-38.1); Carbohydrate Antigen 19-9 15 U/mL (0-35)
[2025-02-23] MEDS: FLUCONAZOLE 100 MG TAB PO SCH (09:48)
[2025-02-23] MEDS: ASPirin 81 mg TAB PO SCH (09:48)
[2025-02-23 10:36] LABS: INR 1.09 (0.9-1.15); Prothrombin Time 11.5 sec (9.3-11.8)
[2025-02-23 10:42] LABS: Partial Thromboplastin Time 80.3 SEC (24.5-34.5)
--- NOTE | 2025-02-23 10:55 | DVH ---
EXAM: XY CHEST PORTABLE Indication: Shortness of breath Technique: Single frontal view of the chest was obtained Comparison: XY CHEST PORTABLE on DOS: 02/21/25 FINDINGS: Lines and Tubes: None Lungs: No focal consolidation. Pulmonary vascular congestion. Pleura: Bilateral costophrenic angles are collimated from field of view. No pneumothorax. Cardiomediastinal contours: Cardiomegaly. Bones: No acute osseous abnormality. Chronic right rib fractures. IMPRESSION: Cardiomegaly with mild pulmonary vascular congestion.
--- NOTE | 2025-02-23 11:54 | CONS ---
Pharmacy Clinical Information: NEW HEPARIN RATE 9 ML/HR OR 900 UNITS/HR SINCE APTT = 80.3 @1000 TODAY 02/23. NEXT AMY APTT @1700 TODAY 02/23 PER RX PROTOCOL ADELA TILLMAN AWARE TO DECREASE HEPARIN RATE FROM 11 ML/HR TO 9 ML/HR AND REPEATED BACK THE ORDER. JAYNE GEORGES PHARMACIST February 23, 2025 11:54
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
--- NOTE | 2025-02-23 16:04 | DVHSR ---
APPROVED REPORT EXAM: Two-dimensional and M-mode echocardiogram with Doppler, color Doppler and Bubble Study. Blood Pressure: 155/98 mmHg INDICATION Chest Pain RISK FACTORS Height: 5'8", Weight: 207 DIMENSIONS LVDd4.4 (3.8-5.7cm)LA (2D) (1.9-4.0cm)Aortic Root (2.0-3.7cm) LVDs3.1 (2.5-4.0cm)LA (MM) (1.9-4.0cm)Aortic Cusp Exc (1.5-2.0cm) EF (%) 55.0 (55-70%)Rt. Atrium (1.9-4.0cm)Asc. Aorta cm Mitral Valve MitralMitral Stenosis E/A ratio0.02D MVAcm2 Other Information Quality : Technically LimitedRhythm : Technically limited study due to body habitus. Conclusion Technically difficult study. Sinus rhythm. Off axis views. Concentric LVH. Normal valves. EF of 60% with normal RV function. Dopplers unremarkable. Pericardial effusion not hemodynamically significant.
[2025-02-23 17:15] LABS: INR 1.08 (0.9-1.15); Partial Thromboplastin Time 66.9 SEC (24.5-34.5); Prothrombin Time 11.4 sec (9.3-11.8)
--- NOTE | 2025-02-23 17:29 | DVHPN2 ---
Subjective Seen and examined at bedside in the ICU. On Heparin Drip. Will DC Tomorrow. Can Downgrade to Tele in AM. Changes from previous H/P or p: No Changes Objective Vitals Vital Signs Date Time Temp Pulse Resp B/P (MAP) Pulse Ox O2 Delivery O2 Flow Rate FiO2 02/23/25 15:01 54 21 159/87 (111) 96 02/23/25 14:00 Nasal Cannula* 3 32 02/23/25 13:00 98.4 98.4 Intake/Output Intake and Output 02/23/25 07:00 Intake Total 1661.07 ml Output Total 800 ml Balance 861.07 ml Intake Oral 1170 ml IV Total 491.07 ml Output Urine Total 800 ml Exam Gen: in bed NAD distress Cvs: N S1/S2, RRR Resp: Diminished Abd: Soft, Manager Business Operations: Paralyzed lower ext Skin: Decubitus present Medications Current Medications Medications Dose Ordered Sig/Shayna Route Start Time Stop Time Status Last Admin Dose Admin Sodium Chloride 10 ml Q8HR IV 02/21/25 22:00 02/23/25 14:12 10 ML Ondansetron HCl 4 mg Q4HP PRN IV 02/21/25 20:30 Docusate Sodium 100 mg BIDPRN PRN PO 02/21/25 20:30 02/23/25 05:31 100 MG Acetaminophen 650 mg Q6HP PRN PO 02/21/25 20:30 02/22/25 21:45 650 MG Morphine Sulfate 2 mg Q4HPRN PRN IV 02/21/25 20:30 02/22/25 02:23 2 MG Nitroglycerin 0.4 mg Q5MINP PRN SL 02/21/25 20:30 Morphine Sulfate 2 mg Q30M PRN IV 02/21/25 20:30 Pantoprazole Sodium 40 mg DAILY IV 02/22/25 10:00 02/23/25 09:47 40 MG Ceftriaxone Sodium 50 ml @ 100 mls/hr DAILY@2100 IV 02/22/25 21:00 02/22/25 21:43 100 MLS/HR Heparin Sodium/ Dextrose 250 ml @ 18 mls/hr [id number] IV 02/22/25 08:00 UNV Acetaminophen/ Hydrocodone Bitart 1 tab Q4HPRN PRN PO 02/22/25 03:15 02/23/25 10:58 1 TAB Albuterol 2.5 mg Q6HPRN PRN NEB 02/22/25 03:45 Ipratropium [place] 0.5 mg Q6HPRN PRN NEB 02/22/25 03:45 Midodrine 10 mg TID@0600,1200,1800 PO 02/22/25 15:00 02/23/25 12:23 10 MG Fluconazole 200 mg DAILY PO 02/23/25 10:00 02/26/25 09:59 02/23/25 09:48 200 MG Aspirin 81 mg DAILY PO 02/23/25 10:00 02/23/25 09:48 81 MG Atorvastatin Calcium 80 mg HS PO 02/22/25 22:00 02/22/25 21:45 80 MG Heparin Sodium/ Dextrose 250 ml @ 9 mls/hr Q24H IV 02/23/25 11:15 02/23/25 11:07 9 MLS/HR Laboratory Results Laboratory Tests 02/23/25 03:29 Chemistry Test 02/23/25 03:29 Calcium Level 8.6 mg/dL (8.7-10.4) L Coagulation Test 02/23/25 01:33 02/23/25 10:00 02/23/25 16:45 Prothrombin Time 11.7 sec (9.3-11.8) 11.5 sec (9.3-11.8) 11.4 sec (9.3-11.8) Prothrombin Time INR 1.12 (0.9-1.15) 1.09 (0.9-1.15) 1.08 (0.9-1.15) Activated Partial Thromboplast Time 107.3 SEC (24.5-34.5) *H 80.3 SEC (24.5-34.5) *H 66.9 SEC (24.5-34.5) H Urinalysis Test 02/21/25 15:02 Urine Color Light-orange (Yellow) Urine Clarity Ex.turbid (Clear) Urine pH 5.5 (5.0-9.0) Urine Specific [place] 1.018 (1.001-1.035) Urine Protein 1+ (Negative) H Urine Ketones Negative (Negative) Urine Blood 1+ /uL (Negative) H Urine Nitrite 2+ (Negative) H Urine Bilirubin Negative (Negative) Urine Urobilinogen Normal mg/dL (Negative) Urine Leukocyte Esterase 3+ /uL (Negative) Urine RBC 20 /hpf (0 - 4) Urine WBC Clumps Present /hpf (None Seen) Urine Microscopic WBC 115 /HPF (0-5) H Urine Squamous Epithelial Cells Mod /hpf (<5) Urine Bacteria Many /hpf (None Seen) H Urine Mucus Few (None Seen) Urine Yeast (Budding) Occasional /hpf (None Urine Glucose Normal mg/dL (Normal) Microbiology Microbiology Date/Time Source Procedure Growth Status 02/22/25 00:30 Nose MRSA Screen - Final Complete 02/21/25 15:02 Voided Urine Urine Culture - Preliminary Resulted Assessment/Plan Assessment/Plan # Pulmonary Embolism Bilateral - s/p Thrombectomy - Cont Heparin Drip # Pancreatic Mass - Spoke with spouse, patient has this mass present for the past 15 years, was seen at [facility] in the past # Acute Resp Failure - Titrate Oxygen down # s/p Hemicolectomy due to Colon Cancer - 15 years ago # Paraplegia # Decubitus present on admission- - Wound Care # NSTEMI-I? # Abdominal Aortic Aneurysm 6.5 - Vascular surgery cx Plan discussed with: Patient My Orders Orders - DONTA OVALLES MD Procedure Category Date Status Time * Dietary Consult CONS 02/23/25 Transmitted 09:08 Date of Service: February 23, 2025 Billing Provider: DONTA OVALLES MD Common Visit Codes: [id number] INP/OBS CARE(HIGH) DONTA OVALLES MD February 23, 2025 17:29
[2025-02-23 23:39] LABS: INR 1.06 (0.9-1.15); Partial Thromboplastin Time 55.2 SEC (24.5-34.5); Prothrombin Time 11.2 sec (9.3-11.8)
[2025-02-24] VITALS (70 sets, daily range): BP systolic 95–194; BP diastolic 32–162; PULSE 47–75; RESP 1–23; TEMP 97–99.1; O2SAT 89–98
[2025-02-24 05:57] LABS: Basophils # (auto) 0.1 10 ^3/uL (0-0.2); Eosinophils # (auto) 0.3 10 ^3/uL (0-0.8); Eosinophils % (auto) 5.1 % (0.0-7.0); Hematocrit 40.9 % (36.0-46.0); Hemoglobin 13.3 g/dL (12.2-16.2); Lymphocytes # (auto) 1.8 10 ^3/uL (0.4-5.4); Lymphocytes % (auto) 35.1 % (10.0-50.0); Mean Corpuscular Hemoglobin 30.3 pg (28.0-32.0); Mean Corpuscular Hgb Conc. 32.6 g/dL (32.0-36.0); Mean Corpuscular Volume 92.9 fL (80.0-100.0); Monocytes # (auto) 0.7 10 ^3/uL (0-1.3); Monocytes % (auto) 13.1 % (0.0-12.0); Neutrophils # (auto) 2.4 10 ^3/uL (1.6-8.6); Neutrophils % (auto) 45.7 % (37.0-80.0); Nucleated Red Blood Cells % 0.2 %; Platelet Count (auto) 163 10^3/uL (140-450); Red Cell Distribution Width 14.5 % (11.8-14.3); White Blood Cell 5.2 10^3/uL (4.4-10.8)
[2025-02-24 06:00] LABS: Anion Gap 6 (5-15); Carbon Dioxide 31 mmol/L (20-31); Chloride 106 mmol/L (98-107); Potassium 4.2 mmol/L (3.5-5.1); Sodium 143 mmol/L (136-145)
[2025-02-24 06:01] LABS: INR 1.05 (0.9-1.15); Partial Thromboplastin Time 25.9 SEC (24.5-34.5); Prothrombin Time 11.1 sec (9.3-11.8)
[2025-02-24 06:06] LABS: BUN/Creatinine Ratio 28.9 (10.0-20.0); Blood Urea Nitrogen 13 mg/dL (9-23); Glucose 93 mg/dL (74-106)
[2025-02-24 06:26] LABS: Calcium 8.5 mg/dL (8.7-10.4)
[2025-02-24] MEDS: HEPARIN DRIP/D5W 100UNITS/ML 250 ML IV SCH (06:28)
[2025-02-24] MEDS ORDERED: HEPARIN SODIUM (PORCINE) 5000 UNITS/ML 1ML VIAL IV ONE (06:30)
[2025-02-24] MEDS: HEPARIN SODIUM (PORCINE) 5000 UNITS/ML 1ML VIAL ONE (06:30)
[2025-02-24] MEDS: LACTULOSE 20Gm/30ML SOLN PO ONE (17:17)
--- NOTE | 2025-02-24 17:59 | DVHPN2 ---
Subjective Seen and examined at bedside in the ICU. DC Heparin Drip. Karlenex, AAA Surgery on Friday by Dr. 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 ext Skin: Decubitus present Medications Current Medications Medications Dose Ordered Sig/Shayna Route Start Time Stop Time Status Last Admin Dose Admin Sodium Chloride 10 ml Q8HR IV 02/21/25 22:00 02/24/25 14:50 10 ML Ondansetron HCl 4 mg Q4HP PRN IV 02/21/25 20:30 Docusate Sodium 100 mg BIDPRN PRN PO 02/21/25 20:30 02/23/25 21:36 100 MG Acetaminophen 650 mg Q6HP PRN PO 02/21/25 20:30 02/23/25 21:36 650 MG Morphine Sulfate 2 mg Q4HPRN PRN IV 02/21/25 20:30 02/22/25 02:23 2 MG Nitroglycerin 0.4 mg Q5MINP PRN SL 02/21/25 20:30 Morphine Sulfate 2 mg Q30M PRN IV 02/21/25 20:30 Pantoprazole Sodium 40 mg DAILY IV 02/22/25 10:00 02/23/25 09:47 40 MG Ceftriaxone Sodium 50 ml @ 100 mls/hr DAILY@2100 IV 02/22/25 21:00 02/23/25 21:36 100 MLS/HR Heparin Sodium/ Dextrose 250 ml @ 18 mls/hr [id number] IV 02/22/25 08:00 UNV Acetaminophen/ Hydrocodone Bitart 1 tab Q4HPRN PRN PO 02/22/25 03:15 02/24/25 12:13 1 TAB Albuterol 2.5 mg Q6HPRN PRN NEB 02/22/25 03:45 Ipratropium [place] 0.5 mg Q6HPRN PRN NEB 02/22/25 03:45 Midodrine 10 mg TID@0600,1200,1800 PO 02/22/25 15:00 02/24/25 06:22 10 MG Fluconazole 200 mg DAILY PO 02/23/25 10:00 02/26/25 09:59 02/24/25 07:37 200 MG Aspirin 81 mg DAILY PO 02/23/25 10:00 02/24/25 07:37 81 MG Atorvastatin Calcium 80 mg HS PO 02/22/25 22:00 02/23/25 21:36 80 MG Enoxaparin Sodium 100 mg Q12HR SC 02/24/25 22:00 Laboratory Results Laboratory Tests 02/24/25 05:16 Chemistry Test 02/24/25 05:16 Calcium Level 8.5 mg/dL (8.7-10.4) L Coagulation Test 02/23/25 23:00 02/24/25 05:16 Prothrombin Time 11.2 sec (9.3-11.8) 11.1 sec (9.3-11.8) Prothrombin Time INR 1.06 (0.9-1.15) 1.05 (0.9-1.15) Activated Partial Thromboplast Time 55.2 SEC (24.5-34.5) H 25.9 SEC (24.5-34.5) Urinalysis Test 02/21/25 15:02 Urine Color Light-orange (Yellow) Urine Clarity Ex.turbid (Clear) Urine pH 5.5 (5.0-9.0) Urine Specific [place] 1.018 (1.001-1.035) Urine Protein 1+ (Negative) H Urine Ketones Negative (Negative) Urine Blood 1+ /uL (Negative) H Urine Nitrite 2+ (Negative) H Urine Bilirubin Negative (Negative) Urine Urobilinogen Normal mg/dL (Negative) Urine Leukocyte Esterase 3+ /uL (Negative) Urine RBC 20 /hpf (0 - 4) Urine WBC Clumps Present /hpf (None Seen) Urine Microscopic WBC 115 /HPF (0-5) H Urine Squamous Epithelial Cells Mod /hpf (<5) Urine Bacteria Many /hpf (None Seen) H Urine Mucus Few (None Seen) Urine Yeast (Budding) Occasional /hpf (None Urine Glucose Normal mg/dL (Normal) Microbiology Microbiology Date/Time Source Procedure Growth Status 02/22/25 00:30 Nose MRSA Screen - Final Complete 02/21/25 15:02 Voided Urine Urine Culture - Final Complete Assessment/Plan Assessment/Plan # Pulmonary Embolism Bilateral - s/p Thrombectomy - Cont Heparin Drip # Pancreatic Mass - Spoke with spouse, patient has this mass present for the past 15 years, was seen at [facility] in the past # Acute Resp Failure - Titrate Oxygen down # s/p Hemicolectomy due to Colon Cancer - 15 years ago # Paraplegia # Decubitus present on admission- - Wound Care # NSTEMI-I? # Abdominal Aortic Aneurysm 6.5 - Vascular surgery cx, CTA Needed. Surgery on Friday 03/02 Plan discussed with: Patient My Orders Orders - DONTA OVALLES MD Procedure Category Date Status Time Transfer Orders XFER 02/23/25 Transmitted 18:03 Enoxaparin Sodium PHA 02/24/25 In Process (Lovenox) 22:00 Npo (Nothing By DIET 02/25/25 Transmitted Mouth) Diet Breakfast Cardiac DIET 02/24/25 Transmitted Diet-2gna,Lofat,Lochol Dinner Angio Aortic Abdominal CT 02/25/25 Verified 07:00 Date of Service: February 24, 2025 Billing Provider: DONTA OVALLES MD Common Visit Codes: [id number] INP/OBS CARE(HIGH) DONTA OVALLES MD February 24, 2025 17:59
[2025-02-24] MEDS: ENOXAPARIN SOD 100 MG/1 ML SYRINGE SC SCH (21:23)
[2025-02-25] VITALS (14 sets, daily range): BP systolic 107–184; BP diastolic 70–105; PULSE 60–77; RESP 18–25; TEMP 97.3–97.7; O2SAT 91–96
[2025-02-25] MEDS: BISACODYL 10 MG RECT SUPP PR PRN (00:09)
--- NOTE | 2025-02-25 10:35 | ECG ---
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
--- NOTE | 2025-02-25 10:42 | ECG ---
[facility] Test Date: 2025-02-22 Test Time: 09:58:20 Pat Name: SHASHI RANDOLPH Department: ICU Room: 0218T B Gender: F Spot Machine Operator: JULIA : 1945 Requested By: JANI KEITH Order Number: [id number] Reading MD: Curt Mcghee Measurements Intervals [place] Rate: 59 P: 44 AK: 187 QRS: 261 QRSD: 127 T: -55 QT: 510 QTc: 506 Interpretive Statements Sinus rhythm Nonspecific IVCD with LAD Probable anteroseptal infarct, old Nonspecific T abnormalities, inferior leads Electronically Signed On 02-26-2025 20:50:04 PDT by Curt Mcghee Please click the below link to view image of tracing.
--- NOTE | 2025-02-25 10:42 | ECG ---
[facility] Test Date: 2025-02-22 Test Time: 09:59:29 Pat Name: SHASHI RANDOLPH Department: ICU Room: 0218T B Gender: F Dock Associate: JULIA : 1945 Requested By: JANI KEITH Order Number: [id number] Reading MD: Curt Mcghee Measurements Intervals [place] Rate: 58 P: 50 LA: 175 QRS: -80 QRSD: 116 T: -50 QT: 500 QTc: 492 Interpretive Statements Sinus rhythm Incomplete RBBB and LAFB Electronically Signed On 02-26-2025 20:50:06 PDT by Curt Mcghee Please click the below link to view image of tracing.
[2025-02-25] MEDS ORDERED: IOHEXOL 350 MG/ML 100ML IJ ONE (13:44)
--- NOTE | 2025-02-25 15:22 | DVH ---
Exam: CT ANGIO AORTIC ABDOMINAL History: AAA Comparison Study: None Contrast: Type of contrast: 26.98 Contrast injected: 1361.64 Contrast wasted: 0 TECHNIQUE: A digital water project manager image was obtained. During the uneventful, intravenous administration of c ontrast material, multislice data acquisition was obtained through the abdomen and pelvis. The data s et was subsequently reconstructed into axial images. Images were reviewed on a work station using a c ombination of axial and multiplanar using a variety of window levels and settings. Radiation Dose Information: CT Dose: CTDI volume is 26.98 mGy. Dose-length product is 1361.64 mGy*cm FINDINGS: Lung Bases: No acute or significant lung base finding. Normal heart size. No pleural or pericardial effusion. Liver: The liver is normal in size. No focal lesions. Normal hepatic vascular enhancement. Gallbladder and Biliary Tree: Distended no calcified gallstones seen Spleen: Unremarkable Pancreas: The pancreas is normal in appearance without focal lesions or abnormal enhancement. Adrenal Glands: Unremarkable Kidneys: Kidneys demonstrate normal symmetric enhancement without focal lesions, calculi or hydroneph rosis. Bladder: Unremarkable Bowel: The stomach is grossly normal in appearance. Small bowel and colon are normal in caliber and d istribution. The appendix is not visualized; however, no secondary findings of acute appendicitis radha ntified. Ascites: Absent Lymphadenopathy: No mesenteric, retroperitoneal or periportal lymphadenopathy. Abdominal Wall and Mesentery: Unremarkable. Vasculature: Appears to be gin in the infrarenal area and extends aortic bifurcation and down the rig ht iliac artery Pelvic Organs: There is a area inflammatory changes the left iliac tuberosity measuring 2.5 x 4.6 cm extending to the skin surface with defect in the skin surface and air in the soft tissues suggesting necrosis. Musculoskeletal: No aggressive focal bony lesions, acute fractures or dislocation. Soft tissues: Unremarkable. IMPRESSION: 1. Infra renal abdominal aortic aneurysm measures 7 cm in diameter and 13-14 cm long. Extends to the aortic bifurcation and into the right iliac artery. 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 2. Ulceration over the left iliac tuberosity. Measuring 3.8 x 2.7 cm with gas in the soft tissues sug gesting a necrotizing process. Can not exclude osteomyelitis involving the ischial tuberosity. in th e soft tissues suggesting necrosis and a necrotizing infection can not exclude infection of the ischi al tuberosity. 3. Possible inflammatory changes in the soft tissues of the greater trochanter of the right femur. 4. 20-30% compression superior endplate of L3. All CT scans at this medical facility are performed using dose modulation techniques as appropriate t o a performed exam including the following: Automated exposure control was utilized; adjustment of th e MA and/or KV according to patient size; and use of iterative reconstruction technique.
--- NOTE | 2025-02-25 15:24 | DVHPN2 ---
Subjective Seen and examined at bedside, cont lovenox. CTA Abdominal Aorta. For Aorta Surgery on Friday by Dr. Salinas Changes from previous H/P or p: No Changes Objective Vitals Vital Signs Date Time Temp Pulse Resp B/P (MAP) Pulse Ox O2 Delivery O2 Flow Rate FiO2 02/25/25 09:00 97.7 60 20 147/83 (104) 95 97.7 02/25/25 08:00 Nasal Cannula* 2 28 Intake/Output Intake and Output 02/25/25 07:00 Intake Total 584 ml Output Total 1450 ml Balance -866 ml Intake Oral 500 ml IV Total 84 ml Output Urine Total 1450 ml Stool Total 0 ml # Bowel Movements 2 Exam Gen: in bed NAD distress Cvs: N S1/S2, RRR Resp: Diminished Abd: Soft, Secondary Art Teacher: Paralyzed lower ext Skin: Decubitus present Medications Current Medications Medications Dose Ordered Sig/Shayna Route Start Time Stop Time Status Last Admin Dose Admin Sodium Chloride 10 ml Q8HR IV 02/21/25 22:00 02/25/25 13:40 10 ML Ondansetron HCl 4 mg Q4HP PRN IV 02/21/25 20:30 Docusate Sodium 100 mg BIDPRN PRN PO 02/21/25 20:30 02/24/25 19:37 100 MG Acetaminophen 650 mg Q6HP PRN PO 02/21/25 20:30 02/23/25 21:36 650 MG Morphine Sulfate 2 mg Q4HPRN PRN IV 02/21/25 20:30 02/22/25 02:23 2 MG Nitroglycerin 0.4 mg Q5MINP PRN SL 02/21/25 20:30 Morphine Sulfate 2 mg Q30M PRN IV 02/21/25 20:30 Pantoprazole Sodium 40 mg DAILY IV 02/22/25 10:00 02/25/25 12:08 40 MG Ceftriaxone Sodium 50 ml @ 100 mls/hr DAILY@2100 IV 02/22/25 21:00 02/24/25 21:18 100 MLS/HR Heparin Sodium/ Dextrose 250 ml @ 18 mls/hr [id number] IV 02/22/25 08:00 UNV Acetaminophen/ Hydrocodone Bitart 1 tab Q4HPRN PRN PO 02/22/25 03:15 02/25/25 00:09 1 TAB Albuterol 2.5 mg Q6HPRN PRN NEB 02/22/25 03:45 Ipratropium [place] 0.5 mg Q6HPRN PRN NEB 02/22/25 03:45 Midodrine 10 mg TID@0600,1200,1800 PO 02/22/25 15:00 02/24/25 06:22 10 MG Fluconazole 200 mg DAILY PO 02/23/25 10:00 02/26/25 09:59 02/24/25 07:37 200 MG Atorvastatin Calcium 80 mg HS PO 02/22/25 22:00 02/24/25 21:21 80 MG Enoxaparin Sodium 100 mg Q12HR SC 02/24/25 22:00 02/25/25 12:08 100 MG Bisacodyl 10 mg Q8HPRN PRN MS 02/24/25 23:45 02/25/25 00:09 10 MG Laboratory Results Laboratory Tests 02/24/25 05:16 Urinalysis Test 02/21/25 15:02 Urine Color Light-orange (Yellow) Urine Clarity Ex.turbid (Clear) Urine pH 5.5 (5.0-9.0) Urine Specific [place] 1.018 (1.001-1.035) Urine Protein 1+ (Negative) H Urine Ketones Negative (Negative) Urine Blood 1+ /uL (Negative) H Urine Nitrite 2+ (Negative) H Urine Bilirubin Negative (Negative) Urine Urobilinogen Normal mg/dL (Negative) Urine Leukocyte Esterase 3+ /uL (Negative) Urine RBC 20 /hpf (0 - 4) Urine WBC Clumps Present /hpf (None Seen) Urine Microscopic WBC 115 /HPF (0-5) H Urine Squamous Epithelial Cells Mod /hpf (<5) Urine Bacteria Many /hpf (None Seen) H Urine Mucus Few (None Seen) Urine Yeast (Budding) Occasional /hpf (None Urine Glucose Normal mg/dL (Normal) Microbiology Microbiology Date/Time Source Procedure Growth Status 02/22/25 00:30 Nose MRSA Screen - Final Complete 02/21/25 15:02 Voided Urine Urine Culture - Final Complete Assessment/Plan Assessment/Plan # Pulmonary Embolism Bilateral - s/p Thrombectomy - Lovenox Subq # 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 # Abdominal Aortic Aneurysm 6.5 - Vascular surgery cx, CTA Needed. Surgery on Friday 03/02 Plan discussed with: Patient My Orders Orders - DONTA OVALLES MD Procedure Category Date Status Time Angio Aortic Abdominal CT 02/25/25 Resulted 07:00 Cardiac DIET 02/25/25 Transmitted Diet-2gna,Lofat,Lochol Dinner Date of Service: February 25, 2025 Billing Provider: DONTA OVALLES MD Common Visit Codes: [id number] INP/OBS CARE(MOD) DONTA OVALLES MD February 25, 2025 15:24
[2025-02-26] VITALS (10 sets, daily range): BP systolic 85–128; BP diastolic 47–73; PULSE 49–95; RESP 16–19; TEMP 97.7–99.1; O2SAT 93–96
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
[2025-02-26 15:52] LABS: Urine Bacteria MOD /hpf (None Seen); Urine Blood Negative /uL (Negative); Urine Budding Yeast OCCASIONAL /hpf (None Seen); Urine Clarity Clear (Clear); Urine Color Yellow (Yellow); Urine Mucus FEW (None Seen); Urine Protein, UAD Negative (Negative); Urine Specific Gravity 1.031 (1.001-1.035); Urine Squamous Epithelial Cell FEW /hpf (<5); Urine Urobilinogen Normal (Negative); Urine WBC 41 /HPF (0-5); Urine pH 5.5 (5.0-9.0)
[2025-02-27 01:00] VITALS: BP 153/83; PULSE 67; RESP 17; TEMP 97.7; O2SAT 94
[2025-02-27 05:00] VITALS: BP 132/70; PULSE 66; RESP 18; TEMP 97.6; O2SAT 96
[2025-02-27 06:43] VITALS: O2SAT 96
[2025-02-27 08:00] VITALS: PULSE 54
[2025-02-27 09:00] VITALS: BP 147/87; PULSE 65; RESP 16; TEMP 98; O2SAT 91
[2025-02-27] MEDS ORDERED: CEFEPIME 1GM/ 50ML 50 ML IV SCH (10:00)
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
--- NOTE | 2025-02-27 10:52 | DVHNC2 ---
Other Procedure Procedure Patient pronounced After unsuccessful CPR we called the notified him of the condition change. The patient status was do not intubate. There has been asking if there is no pause restored with the ongoing CPR to go ahead and stop everything. No pulse No pupil response No breathing effort No responses to painful stimuli. Patient pronounced at 10:20 a.m. of 02/27/2025 ROBERT GALAN MD February 27, 2025 10:52
--- NOTE | 2025-02-27 11:17 | RESUS ---
DMITRIY POLK ASSESSSMENT History of Events History of Events: Per primary RN, cardiac rhythm change noted on bedside sales operations lead. Upon assessment, patient was unresponsive with irregular and shallow respiratory rate/ rhthym. Rapid Response initially called for further evaluation at 1003. Patient became agonal and pulseless at 1004. Dmitriy polk initiated. Initial Information Date: February 27, 2025 Time: 10:04 Location of Arrest: [facility] Witnessed: Yes CPR started initial time: 10:04 CPR started by whom: Hospital Staff Pre-Hospital Care: ACLS Type of arrest: Cardiac Spontaneous Respirations: Yes Pulse Present: No Monitoring: Telemetry Crash Cart Opened and Supplies: Yes Airway Ventilation Breathing at Onset: Agonal O2 Sat by Pulse Oximetry: 72 Oxygen Delivery Method: Ambu-Bag Time of first Assisted Ventila: 10:03 Artificial Ventilation: Bag/Mask Comments: No intubation. Patient is DNI status Circulation Circulation #1: Time: 10:06 Circulation Comment: [place] Circulation #2: Time: 10:08 Circulation Comment: PEA Circulation #3: Time: 10:10 Circulation Comment: ROSC/ MARIO HR 38 Circulation #4: Time: 10:13 Circulation Comment: PULSES LOST/ PEA Circulation #5: Time: 10:16 Circulation Comment: PEA Circulation #6: Time: 10:18 Circulation Comment: PEA Circulation #7: Time: 10:21 Circulation Comment: PEA Circulation #8: Time: 10:23 Circulation Comment: ROSC/ MARIO 36 NO DETECTABLE BP RT CONTINUES TO PROVIDE O2 VIA AMBU BAG PATIENT IS A DNI, FAMILY ON THE PHONE WITH DR GALAN DISCUSSING CODE STATUS. Circulation #9: Time: 10:27 Circulation Comment: PEA Circulation #10: Time: 10:29 Circulation Comment: PEA/ TOD Procedure - IV Procedure - IV : IV Side: Left IV Location: Wrist IV Catheter Type: Peripheral IV IV Placed: In Hospital IV Gauge: 22 IV Line Care: Saline Flush Comment IV IN PLACE PRIOR TO DMITRIY POLK Medications & Response Medications and Responses #1: Medication Time: 10:05 ADULT Medications Given ADULT: Epinephrine 1 mg Route of Administration: IV Medications and Responses #2: Medication Time: 10:08 ADULT Medications Given ADULT: Epinephrine 1 mg Route of Administration: IV Medications and Responses #3: Medication Time: 10:10 ADULT Medications Given ADULT: Epinephrine 1 mg Route of Administration: IV Medications and Responses #4: Medication Time: 10:12 ADULT Medications Given ADULT: Atropine 1 mg Route of Administration: IV Medications and Responses #5: Medication Time: 10:13 ADULT Medications Given ADULT: Epinephrine 1 mg Route of Administration: IV Medications and Responses #6: Medication Time: 10:16 ADULT Medications Given ADULT: Epinephrine 1 mg, 2 Amps Na Bicarb Route of Administration: IV Medications and Responses #7: Medication Time: 10:20 ADULT Medications Given ADULT: Epinephrine 1 mg Route of Administration: IV Medications and Responses #8: Medication Time: 10:28 ADULT Medications Given ADULT: Epinephrine 1 mg Route of Administration: IV Procedure - [place] Catheter Urinary Catheter Type/Location: Uretheral (Centeno) Comment: CENTENO CATHETER IN PLACE PRIOR TO CODE BLUE Nurses Notes [place] Coma Scale Eye Opening: None (1) [place] Coma Scale Verbal: None (1) Kb Coma Scale Motor: None (1) Pupil Reaction: Non Reactive Bedside Blood Glucose: 106 Time Code Ended Time Code Ended: 10:29 Post Arrest Status: Outcome of code: Unsuccessful Patient pronounced by: DR GALAN Time patient pronounced: 10:29 Family notified: Yes Attending called: Yes Code Team Present: DR CARL PRATT RN [facility] ICU WAREHOUSE CLERK EDI ICU RESOURCE RN LORETTA URRUTIA [facility] Wendy Boo February 27, 2025 11:16
== END 2025-02-27 10:29 | DRG 163 ==
LOC: EDBD 13:27 → ER 13:35 → OVERFLOW 20:20 → ICU WEST 23:55 → TELE-CENTR 02-25 03:53
PROVIDERS: ADMIT Internal Medicine; ATTEND Internal Medicine
PROC: 02CR3ZZ Extirpation of Matter from Left Pulmonary Artery, Percutaneous Approach (ICD-10-PCS; principal; 2025-02-21)
PROC: 02CQ3ZZ Extirpation of Matter from Right Pulmonary Artery, Percutaneous Approach (ICD-10-PCS; 2025-02-21)
PROC: 5A12012 Performance of Cardiac Output, Single, Manual (ICD-10-PCS; 2025-02-27)
DX: I26.99 Other pulmonary embolism without acute cor pulmonale (principal); I21.A1 Myocardial infarction type 2; J96.01 Acute respiratory failure with hypoxia; L89.154 Pressure ulcer of sacral region, stage 4; G82.20 Paraplegia, unspecified; N30.01 Acute cystitis with hematuria; K59.09 Other constipation; E78.5 Hyperlipidemia, unspecified; J44.9 Chronic obstructive pulmonary disease, unspecified; I71.40 Abdominal aortic aneurysm, without rupture, unspecified; K86.9 Disease of pancreas, unspecified; I16.0 Hypertensive urgency; F17.200 Nicotine dependence, unspecified, uncomplicated; F12.90 Cannabis use, unspecified, uncomplicated; I95.9 Hypotension, unspecified; I45.10 Unspecified right bundle-branch block; L89.329 Pressure ulcer of left buttock, unspecified stage; Z90.710 Acquired absence of both cervix and uterus; Z74.01 Bed confinement status; Z85.038 Personal history of other malignant neoplasm of large intestine; Z86.79 Personal history of other diseases of the circulatory system
CPT/HCPCS: 36415; 37187; 70450; 71045; 71275; 74175; 80048; 80053; 81001; 82105; 82378; 83036; 83605; 83735; 83880; 84443; 84484; 85025; 85379; 85610; 85730; 86301; 86304; 86850; 86900; 86901; 87081; 87086; 92950; 93005; 93306; 93970; 99152; 99291; C1769; C1894; G0378; J2250; J2405; J2470; Q9967